=== PATIENT | female | born 1980 | race Caucasian/White ===

== ENCOUNTER 2018-05-03 10:06 | Emergency (ER) | payer MEDICAID, OTHER ==
--- NOTE | 2018-05-03 11:44 | ED Physician Documentation ---
Hand Injury - HISTORIAN Historian: patient - HPI Stated Complaint: right hand pain post surgery Chief Complaint: Upper Extremity Problem Onset: other (surgery on 04.30.2018) Where: other (surgery) Severity: moderate Duration: persistent since Location of Injury: R wrist (healing incision ) Further Comments: yes (she reports she had surgery on 04.30.18 and she states that she was "only given 8 norco and I am out" . She denies any injury. No fever. No drainge or redness. She is able to fully move her wrist and has normal sensation. She states she needs more norco) - ROS CONST: no problems - PAST HX Past History: none Immunizations: UTD - SOCIAL HX Smoking History: non-smoker Alcohol Use: none Drug Use: none - FAMILY HX Family History: none - REVIEWED ASSESSMENTS Nursing Assessment Reviewed: Yes Vitals Reviewed: Yes Hand Injury Physical Exam - Exam General Appearance: no acute distress Hand: nml inspection, non-tender Wrist: normal inspection, normal ROM, pain (with palpation over and lateral to incision. Sutures intact. No redness. No drainge ) Neuro: sensation nml, motor nml Vascular: no vascular compromise Tendons: tendon function nml Forearm/Elbow/Arm: uninjured above wrist Skin: warm/dry, normal color Head/ENT: nml inspection Neck/Back: nml inspection Resp/CVS: chest non-tender, breath sounds nml, heart sounds nml, no resp. distress, lungs clear, reg. rate & rhythm Abdomen: non-tender Discharge Clincal Impression: History of carpal tunnel surgery of right wrist Referrals: Primary Doctor,No [Primary Care Provider] - 2 Days Comments: 1. OTC meds as needed for pain 2. Contact surgeon about continued pain 3. Ice to wrist 4. Follow up with PCP for any further concerns 5. Return to ER for further concerns Condition: Stable Disposition: 07 AGAINST MEDICAL ADVICE Decision to Admit: NO Date of Decison to Admit: 05/03/18 Decision Time: 11:43
== END 2018-05-03 11:40 | disposition left against medical advice (07) ==
LOC: ED 10:06
DX: G89.18 Other acute postprocedural pain (principal); Z98.890 Other specified postprocedural states
CPT/HCPCS: 99281

== ENCOUNTER 2018-05-12 20:22 | Emergency (ER) | payer MEDICAID, OTHER ==
[~2018-05-12 20:22] MED LIST: KETOROLAC TROMETHAMINE 60 MG/2 ML VIAL ONE; LIDOCAINE HCL 1% PF 50MG/5ML AMP (IM/SUTURE/PAIN CLINIC) ONE; cefTRIAXone SODIUM 1 GM INJ ONE
== END 2018-05-12 21:23 ==
LOC: ED 20:22
DX: K02.9 Dental caries, unspecified (principal)
CPT/HCPCS: 96372; 99282; 99284; J0696; J1885